=== PATIENT | female | born 1995 | race Caucasian/White ===

== ENCOUNTER 2020-06-30 10:44 | Outpatient (REF) | payer OTHER, SELFPAY | END 2020-06-30 10:45 | disposition home or self-care (01) | LOC: HO.LAB 10:44 | PROVIDERS: Visit Provider Internal Medicine | DX: Z20.828 Contact with and (suspected) exposure to other viral communicable diseases (principal) | CPT/HCPCS: C9803; U0003 ==

== ENCOUNTER 2022-06-27 10:29 | Outpatient (REF) | payer OTHER, SELFPAY ==
[2022-06-27 11:27] LABS: UPreg QC Valid YES; Urine Pregnancy POSITIVE (NEGATIVE)
[2022-06-27 12:30] LABS: HCG Quantitative 110 mIU/mL
== END 2022-06-27 10:30 | disposition home or self-care (01) ==
LOC: HO.LAB 10:29
PROVIDERS: PCP Internal Medicine; Visit Provider Advanced Practice Midwife
DX: O20.0 Threatened abortion (principal)
CPT/HCPCS: 36415; 81025; 84702